=== PATIENT | male | born 1995 | race Two or more races ===

== ENCOUNTER → 2019-12-30 | Emergency (ER) | payer MEDICAID, OTHER ==
[~2019-12-30] VITALS: Ht 167.6 cm; Wt 55.3 kg
[2019-12-30 15:02] VITALS: BP 104/78
[2019-12-30 15:32] LABS: Amphetamine Screen, Urine NEGATIVE (NEGATIVE); Barbiturate Scree,Urine NEGATIVE (NEGATIVE); Benzodiazephine Screen, Urine NEGATIVE (NEGATIVE); Cocaine Screen, Urine NEGATIVE (NEGATIVE); Opiate Scree,Urine NEGATIVE (NEGATIVE); Phencyclidine Screen, Urine NEGATIVE (NEGATIVE)
[2019-12-30 15:40] LABS: Cannabinoid Screen, Urine POSITIVE (NEGATIVE)
== END | disposition home or self-care (01) ==
LOC: ER 11:01
DX: R07.89 Other chest pain (principal); F32.9 Major depressive disorder, single episode, unspecified; Z88.6 Allergy status to analgesic agent
CPT/HCPCS: 71046; 80307; 93005

== ENCOUNTER 2021-02-04 01:49 | Emergency (ER) | payer MEDICAID ==
[~2021-02-04] VITALS: Ht 167.6 cm; Wt 59.0 kg
[2021-02-04 04:31] VITALS: BP 116/75
[2021-02-04 07:05] LABS: Urine Bacteria FEW /hpf (None Seen); Urine Blood Negative /uL (Negative); Urine Specific Gravity 1.013 (1.001-1.035); Urine WBC 15 /hpf (0 - 3)
== END 2021-02-04 06:47 | disposition home or self-care (01) ==
LOC: EDBD 01:49 → ER 01:52
DX: F41.9 Anxiety disorder, unspecified (principal); J45.909 Unspecified asthma, uncomplicated; F20.9 Schizophrenia, unspecified; Z88.6 Allergy status to analgesic agent; Z76.0 Encounter for issue of repeat prescription
CPT/HCPCS: 74176; 81001

== ENCOUNTER 2021-12-04 18:35 | Emergency (ER) | payer MEDICAID ==
[~2021-12-04] VITALS: Ht 182.9 cm; Wt 90.7 kg
[2021-12-04 18:55] VITALS: BP 106/67
[2021-12-04] MEDS ORDERED: [UNRECOGNIZED DRUG - CODE] XX (23:26)
== END 2021-12-04 22:17 | disposition left against medical advice (07) ==
LOC: EDBD 18:35 → ER 18:42
DX: S92.352A Displaced fracture of fifth metatarsal bone, left foot, initial encounter for closed fracture (principal); M79.605 Pain in left leg; M79.604 Pain in right leg; J45.909 Unspecified asthma, uncomplicated; Z59.00 Homelessness unspecified; Z79.899 Other long term (current) drug therapy; Z88.8 Allergy status to other drugs, medicaments and biological substances
CPT/HCPCS: 73610; 73630